=== PATIENT | male | born 1950 | race Caucasian/White ===

== ENCOUNTER 2019-04-11 18:02 | Observation (INO) | payer MEDICARE, MEDICAID ==
[~2019-04-11] VITALS: Ht 167.6 cm; Wt 60.4 kg
[~2019-04-11 18:02] MED LIST: ASPI-611 PO; BACL10TA PO; CLOP75TA15 PO; LOSA100T57 PO; PRAV20TA4 PO; TRAZ-251 PO
[2019-04-11 18:54] LABS: BASOPHILS # (AUTO) 0.1 X10'3 (0-0.2); BASOPHILS % (AUTO) 0.9 % (0-1); EOSINOPHILS # (AUTO) 0.1 X10'3 (0-0.9); EOSINOPHILS % (AUTO) 0.7 % (0-6); HEMATOCRIT 46.4 % (42.0-52.0); HEMOGLOBIN 15.9 g/dl (14.0-17.9); LYMPHOCYTES # (AUTO) 5.5 X10'3 (1.1-4.8); LYMPHOCYTES % (AUTO) 35.6 % (21-51); MEAN CORPUSCULAR HEMOGLOBIN 32.1 PG (27.0-31.0); MEAN CORPUSCULAR HGB CONC 34.2 g/dL (33.0-36.5); MEAN CORPUSCULAR VOLUME 93.8 FL (78-98); MEAN PLATELET VOLUME 7.8 FL (7.4-10.4); MONOCYTES # (AUTO) 0.9 X10'3 (0-0.9); MONOCYTES % (AUTO) 5.7 % (2-12); NEUTROPHILS # (AUTO) 8.8 X10'3 (1.8-7.7); NEUTROPHILS % (AUTO) 57.1 % (42-75); PLATELET COUNT 312 X10'3 (140-440); RED BLOOD COUNT 4.95 X10'6 (4.70-6.10); RED CELL DISTRIBUTION WIDTH 13.1 % (11.5-14.5); WHITE BLOOD COUNT 15.4 X10'3 (4.5-11.0)
[2019-04-11 19:02] LABS: CLARITY,URINE CLEAR (Clear); COLOR,URINE YELLOW (Yellow); GLUCOSE, URINE NEGATIVE (Neg); KETONES,URINE NEGATIVE (Neg); LEUKOCYTE ESTERASE ,URINE NEGATIVE (Neg); NITRITES, URINE NEGATIVE (Neg); OCCULT BLOOD,URINE NEGATIVE (Neg); PH,URINE 5.5 (4.8-8.0); PROTEIN,URINE NEGATIVE (Neg); UROBILINOGEN,URINE 0.2 E.U/dL (0.2-1.0)
[2019-04-11 19:05] LABS: UA COLLECTION TYPE NON-SPECIFIED
[2019-04-11 19:09] LABS: ALANINE AMINOTRANSFERASE 22 U/L (12-78); ALBUMIN 4.7 G/DL (3.4-5.0); ALBUMIN/GLOBULIN RATIO 1.1 (1.1-1.5); ALKALINE PHOSPHATASE 82 IU/L (46-116); ANION GAP 12 (8-16); ASPARTATE AMINO TRANSFERASE 19 U/L (10-37); BILIRUBIN,TOTAL 0.6 MG/DL (0.1-1.0); BLOOD UREA NITROGEN 27 MG/DL (7-18); BUN/CREATININE RATIO 20.9 (5.4-32.0); CALCIUM 10.2 MG/DL (8.5-10.1); CHLORIDE 101 MMOL/L (99-107); CREATININE 1.29 MG/DL (0.60-1.10); GLUCOSE 111 MG/DL (70-104); SODIUM 137 MMOL/L (135-145); TOTAL CARBON DIOXIDE 24.2 MMOL/L (24-32); TOTAL PROTEIN 8.8 G/DL (6.4-8.2); eGFR 55 ML/MIN
[2019-04-11] MEDS ORDERED: normal saline 1000ML IV soln IVB ONE (19:25)
[2019-04-11] MEDS ORDERED: iohexol 300mg/ml 100ml inj. ONE (19:25)
[2019-04-11] MEDS ORDERED: fentaNYL/PF 50MCG/1 ML 2ML syringe IV ONE (19:25)
[2019-04-11] MEDS ORDERED: ondansetron/PF 4mg/2ml inj IV ONE (19:25)
[2019-04-11] MEDS ORDERED: BUPIVAcaine/PF 2.5 mg/ml (0.25%) 30ml vial ONE (20:10)
[2019-04-11] MEDS ORDERED: piperacillin/tazo 3.375gm/50ml 50 ML IV ONE (20:30)
--- NOTE | 2019-04-11 20:41 | NUR ---
PT AMBULATED TO BATHROOM WITH NO ASSISTANCE, STEADY GAIT. PT BACK IN BED WITH WARM BLANKETS, RESTING COMFORTABLY
[2019-04-11] MEDS ORDERED: BENA40TA73 PO (22:18)
[2019-04-11] MEDS ORDERED: TIZA2TAB5 PO (22:18)
[2019-04-11] MEDS ORDERED: ATOR40TA PO (22:18)
[2019-04-11] MEDS ORDERED: TRAM50TA2 PO (22:18)
[2019-04-11] MEDS ORDERED: DOCU100C41 PO (22:18)
[2019-04-11] MEDS ORDERED: magnesium hydroxide 30ml (MOM) UD suspension PO PRN (22:20)
[2019-04-11] MEDS ORDERED: acetaminophen 325mg tablet PO PRN ×2 (22:20)
[2019-04-11] MEDS ORDERED: mag hydrox/Alum hydrox/simeth 30ml oral suspension PO PRN (22:20)
[2019-04-11] MEDS ORDERED: ondansetron/PF 4mg/2ml inj IV PRN (22:20)
[2019-04-11] MEDS: normal saline 1000ml 1,000 ML IV SCH (23:54)
[2019-04-11] MEDS: HYDROcodone/acetaminophen 5mg/325mg tablet PO PRN (23:55)
[2019-04-12 00:45] VITALS: BP 182/81
--- NOTE | 2019-04-12 00:45 | NUR ---
Received report from Charles AGUILAR pt arrived via hospital bed, oriented pt to room, performed my assessment.
[2019-04-12] MEDS ORDERED: traZODone 50mg tablet PO SCH (01:30)
[2019-04-12 04:14] VITALS: BP 146/75
[2019-04-12 04:30] LABS: BASOPHILS # (AUTO) 0.1 X10'3 (0-0.2); BASOPHILS % (AUTO) 0.6 % (0-1); EOSINOPHILS # (AUTO) 0.2 X10'3 (0-0.9); EOSINOPHILS % (AUTO) 1.9 % (0-6); HEMATOCRIT 39.9 % (42.0-52.0); HEMOGLOBIN 13.6 g/dl (14.0-17.9); LYMPHOCYTES # (AUTO) 2.6 X10'3 (1.1-4.8); LYMPHOCYTES % (AUTO) 31.6 % (21-51); MEAN CORPUSCULAR HEMOGLOBIN 32.1 PG (27.0-31.0); MEAN CORPUSCULAR HGB CONC 33.9 g/dL (33.0-36.5); MEAN CORPUSCULAR VOLUME 94.4 FL (78-98); MEAN PLATELET VOLUME 7.6 FL (7.4-10.4); MONOCYTES # (AUTO) 0.6 X10'3 (0-0.9); MONOCYTES % (AUTO) 7.7 % (2-12); NEUTROPHILS # (AUTO) 4.8 X10'3 (1.8-7.7); NEUTROPHILS % (AUTO) 58.2 % (42-75); PLATELET COUNT 217 X10'3 (140-440); RED BLOOD COUNT 4.23 X10'6 (4.70-6.10); RED CELL DISTRIBUTION WIDTH 13.1 % (11.5-14.5); WHITE BLOOD COUNT 8.3 X10'3 (4.5-11.0)
[2019-04-12 04:48] LABS: ALBUMIN 3.3 G/DL (3.4-5.0); ANION GAP 7 (8-16); BLOOD UREA NITROGEN 20 MG/DL (7-18); BUN/CREATININE RATIO 18.5 (5.4-32.0); CALCIUM 8.7 MG/DL (8.5-10.1); CHLORIDE 107 MMOL/L (99-107); CREATININE 1.08 MG/DL (0.60-1.10); GLUCOSE 90 MG/DL (70-104); POTASSIUM 3.7 MMOL/L (3.5-5.1); SODIUM 141 MMOL/L (135-145); TOTAL CARBON DIOXIDE 26.9 MMOL/L (24-32); eGFR 68 ML/MIN
--- NOTE | 2019-04-12 06:20 | NUR ---
gave report to Krystal AGUILAR pt is resting on RA in no apparent distress, call light and items of freq use within reach
--- NOTE | 2019-04-12 06:43 | NUR ---
Patient in room [facility]. I have received report from luna gomez and had the opportunity to ask questions and assume patient care. Addendum: 04/12/19 at 0644 by Rebecca Peralta RN disregard khushi wills rn
--- NOTE | 2019-04-12 06:44 | NUR ---
Patient in room [facility] 348. I have received report from donnell gomez and had the opportunity to ask questions and assume patient care.
[2019-04-12 07:00] VITALS: BP 141/68
[2019-04-12] MEDS ORDERED: enoxaparin 40mg/0.4ml syringe SUBCUT SCH (08:00)
[2019-04-12] MEDS: normal saline 1000ml 1,000 ML IV SCH (08:17)
[2019-04-12] MEDS ORDERED: amox tr/potassium clavulanate 875/125mg TAB PO SCH (08:30)
[2019-04-12] MEDS: HYDROcodone/acetaminophen 5mg/325mg tablet PO PRN (09:05)
[2019-04-12] MEDS ORDERED: HYDR-4383 PO (10:23)
--- NOTE | 2019-04-12 11:16 | NUR ---
PT DISCHARGED IN STABLE CONDITION. IV DC CANULA INTACT. FOLLOW UP INSTRUCTIONS GIVEN, ALL QUESTIONS ANSWERED. ALL BELONGINGS IN HAND INCLUDING RX FOR NORCO. Addendum: 04/12/19 at 1117 by Rebecca Peralta RN Amended: Links added.
== END 2019-04-12 12:30 | disposition home or self-care (01) ==
LOC: ER 18:04 → ED HOLD 22:17 → SUR 3N 04-12 00:50
PROVIDERS: ADMIT Hospitalist; ATTEND Internal Medicine
DX: R10.31 Right lower quadrant pain (principal); D72.829 Elevated white blood cell count, unspecified; K57.32 Diverticulitis of large intestine without perforation or abscess without bleeding; R42 Dizziness and giddiness; G43.909 Migraine, unspecified, not intractable, without status migrainosus; E78.00 Pure hypercholesterolemia, unspecified; I10 Essential (primary) hypertension; N28.9 Disorder of kidney and ureter, unspecified; E78.5 Hyperlipidemia, unspecified; Z98.61 Coronary angioplasty status; Z79.82 Long term (current) use of aspirin; Z79.899 Other long term (current) drug therapy
CPT/HCPCS: 36415; 74177; 80048; 80053; 81003; 84145; 85025; 85610; 87081; 96361; 96365; 96372; 96375; 96376; 99284; G0378; J2405; J2543; J3010; J3490; J7030; Q9967; J1650

== ENCOUNTER 2023-07-28 17:51 | Emergency (ER) | payer MEDICARE, MEDICAID ==
[~2023-07-28] VITALS: Ht 167.6 cm; Wt 72.7 kg
[~2023-07-28 17:51] MED LIST changes: +ATOR40TA PO; -BACL10TA PO; +BENA40TA73 PO; -CLOP75TA15 PO; +DOCU100C41 PO; +HYDR-4383 PO; -LOSA100T57 PO; -PRAV20TA4 PO; +TIZA-189 PO; +TRAM50TA2 PO
[2023-07-28] MEDS ORDERED: iohexol 350MG/ML 100ml bottle IV ONE (18:15)
[2023-07-28 18:42] LABS: HEMATOCRIT 33.4 % (42.0-52.0); RED BLOOD COUNT 3.76 X10'6 (4.70-6.10); WHITE BLOOD COUNT 8.2 X10'3 (4.5-11.0)
[2023-07-28 18:43] LABS: BASOPHILS % (AUTO) 0.6 % (0-1); EOSINOPHILS # (AUTO) 0.2 X10'3 (0-0.9); EOSINOPHILS % (AUTO) 2.3 % (0-6); LYMPHOCYTES # (AUTO) 3.5 X10'3 (1.1-4.8); LYMPHOCYTES % (AUTO) 43.1 % (21-51); MEAN CORPUSCULAR HEMOGLOBIN 29.2 PG (27.0-31.0); MEAN CORPUSCULAR HGB CONC 32.9 g/dL (33.0-36.5); MEAN CORPUSCULAR VOLUME 88.8 FL (78-98); MEAN PLATELET VOLUME 7.7 FL (7.4-10.4); MONOCYTES # (AUTO) 0.8 X10'3 (0-0.9); MONOCYTES % (AUTO) 9.2 % (2-12); NEUTROPHILS # (AUTO) 3.7 X10'3 (1.8-7.7); NEUTROPHILS % (AUTO) 44.8 % (42-75); PLATELET COUNT 289 X10'3 (140-440); RED CELL DISTRIBUTION WIDTH 13.8 % (11.5-14.5)
[2023-07-28 19:06] LABS: APTT 30 SECONDS (22-32); PROTHROMBIN TIME 10.4 SECONDS (9.0-12.0)
[2023-07-28 19:08] LABS: ALANINE AMINOTRANSFERASE 18 U/L (12-78); ALBUMIN 3.8 G/DL (3.4-5.0); ALKALINE PHOSPHATASE 83 IU/L (46-116); ANION GAP 8 (8-16); ASPARTATE AMINO TRANSFERASE 9 U/L (10-37); BILIRUBIN,TOTAL 0.3 MG/DL (0.1-1.0); BLOOD UREA NITROGEN 30 MG/DL (7-18); CHLORIDE 107 MMOL/L (99-107); GLUCOSE 133 MG/DL (70-104); POTASSIUM 4.2 MMOL/L (3.5-5.1); SODIUM 141 MMOL/L (135-145); TOTAL PROTEIN 7.5 G/DL (6.4-8.2); eCRCL 39 ML/MIN; eGFR 46 ML/MIN
[2023-07-28] MEDS: hydrALAZINE 20mg/ml inj. IV ONE (19:25)
[2023-07-28 19:36] LABS: FREE T4 (FREE THYROXINE) 0.84 NG/DL (0.73-1.40); PRO BRAIN NATRIURETIC PEPTIDE 97 PG/ML (0-125); THYROID STIMULATING HORMONE 1.99 ulU/ml (0.34-4.50)
[2023-07-28 19:58] LABS: BILIRUBIN,URINE NEGATIVE (Neg); CLARITY,URINE CLEAR (Clear); COLOR,URINE STRAW (Yellow); GLUCOSE, URINE NEGATIVE (Neg); KETONES,URINE NEGATIVE (Neg); LEUKOCYTE ESTERASE ,URINE NEGATIVE (Neg); NITRITES, URINE NEGATIVE (Neg); OCCULT BLOOD,URINE NEGATIVE (Neg); PH,URINE 5.5 (4.8-8.0); PROTEIN,URINE NEGATIVE (Neg); UROBILINOGEN,URINE 0.2 E.U/dL (0.2-1.0)
[2023-07-28 20:04] LABS: UA COLLECTION TYPE CLN CATCH MIDSTREAM
[2023-07-28 21:06] VITALS: BP 181/88; PULSE 88; RESP 18; TEMP 97.8; O2SAT 92
[2023-07-28] MEDS: labetalol 20mg/4ml (5mg/ml) syringe IV ONE (21:53)
== END 2023-07-28 22:31 | disposition short-term general hospital (02) ==
LOC: ER 17:51
DX: I77.71 Dissection of carotid artery (principal); E78.00 Pure hypercholesterolemia, unspecified; I10 Essential (primary) hypertension; E78.5 Hyperlipidemia, unspecified; Z20.822 Contact with and (suspected) exposure to COVID-19; Z95.5 Presence of coronary angioplasty implant and graft; Z98.890 Other specified postprocedural states; Z88.5 Allergy status to narcotic agent; Z88.8 Allergy status to other drugs, medicaments and biological substances; Z79.82 Long term (current) use of aspirin; Z79.899 Other long term (current) drug therapy
CPT/HCPCS: 36415; 70450; 70496; 70498; 71045; 80053; 81003; 83880; 84439; 84443; 84484; 85025; 85610; 85730; 87502; 87503; 87811; 93005; 96374; 96375; 99285; J0360; J3490; Q9967